=== PATIENT | male | born 1990 | race Hispanic/Latino ===

== ENCOUNTER 2018-06-18 13:46 | Emergency (ER) | payer SELFPAY ==
[2018-06-18 14:30] LABS: Urine Blood NEGATIVE (NEG); Urine Glucose NEGATIVE (NEG); Urine Protein 1+ (NEG); Urine Specific Gravity 1.015 (1.005-1.030); Urine pH 8.5 (5.0-7.0)
[2018-06-18] MEDS ORDERED: LIDOCAINE VISCOUS 2% SOLN 15 ML UDC ONE (14:38)
[2018-06-18] MEDS ORDERED: MAGNE/ALUM HYDROXD 30 ML UCUP ONE (14:39)
[2018-06-18] MEDS ORDERED: ONDANSETRON 4 MG/2 ML VIAL ONE (14:47)
[2018-06-18] MEDS ORDERED: MORPHINE 4 MG/ML SYR ONE (14:57)
[2018-06-18] MEDS ORDERED: PROMETHAZINE 25 MG/ML VIAL ONE ×2 (15:03→16:08)
[2018-06-18 15:13] LABS: ALT/SGPT 60 U/L (12-78); AST/SGOT 24 U/L (15-37); Albumin 4.6 g/dL (3.4-5.0); Alkaline Phosphatase 94 U/L (45-117); BUN Blood Urea Nitrogen 9 mg/dL (7-18); Bicarbonate 28 mmol/L (21-32); Bilirubin Direct 0.2 mg/dL (0-0.2); Bilirubin Total 0.6 mg/dL (0.2-1.0); Glucose Level 102 mg/dL (74-106); Lipase 84 U/L (73-393); Potassium 3.9 mmol/L (3.5-5.1); Protein, Total 8.8 g/dL (6.4-8.2); Sodium Level 140 mmol/L (136-145)
[2018-06-18 15:29] LABS: Absolute Lymphocytes (CBC) 1.6 K/uL (0.7-4.9); Absolute Monocytes 0.9 K/uL (0.1-1.3); Absolute Neutrophil 12.7 K/uL (1.8-8.0); Basophils % 0.4 % (0-1.3); Eosinophils % 0.1 % (0-4.4); Hematocrit 51.4 % (39.6-49.0); Lymphocytes % 10.2 % (15.3-44.8); MCH 30.9 pg (27.0-35.0); MCV 90.2 fL (80-100); MPV 10.2 fL (7.6-11.3); Monocytes % 5.6 % (3.3-12.3); RBC Red Blood Cell Count 5.69 M/uL (4.33-5.43)
--- NOTE | 2018-06-18 15:56 | RAD REPORT ---
EXAM DESCRIPTION: US - Abdomen Exam Limited - 06/18/2018 3:50 pm CLINICAL HISTORY: Abdominal pain, nausea and vomiting COMPARISON: None. FINDINGS: No gallstones, sludge or other abnormalities within the gallbladder lumen. There is no wal l thickening or pericholecystic fluid. No common duct stone or biliary tree dilatation identified. IMPRESSION: Normal gallbladder and biliary tree ultrasound.
[2018-06-18] MEDS ORDERED: MEPERIDINE HCL 50 MG/ML AMP ONE (16:51)
--- NOTE | 2018-06-18 16:54 | RAD REPORT ---
EXAM DESCRIPTION: CT - Abdomen Pelvis W Contrast - 06/18/2018 4:39 pm CLINICAL HISTORY: Epigastric pain, abdominal pain COMPARISON: None. TECHNIQUE: Biphasic, helical CT imaging of the abdomen and pelvis was performed following 100 ml non -ionic IV contrast. Oral contrast was given. All CT scans are performed using dose optimization technique as appropriate and may include automated exposure control or mA/KV adjustment according to patient size. FINDINGS: No suspicious findings in the lung bases. In the anterior right lobe segment IV there is an 18 millimeter enhancing focus on the arterial phase . This is isodense to the liver on venous phase imaging. This is most likely a hemangioma. Liver is o therwise unremarkable. Spleen and pancreas show no suspicious findings. Gallbladder and biliary tree are also without suspic ious finding. Symmetric renal function is seen with no hydronephrosis or suspicious renal mass. No adrenal abnormal ity. Contracted urinary bladder shows no suspicious finding. Prostate gland and seminal vesicles are normal range. No gastric dilatation or gastric wall thickening. No acute small bowel finding. No appendicitis. An a cute colon process is not suspected. There is a focal distention of the distal sigmoid follow up by a circumferential narrowing of the proximal rectum. Bell do not appear thickened. This is probably a peristalsis artifact. Mass of the rectum is unlikely. There is no stranding in the adjacent fat. No free air, free fluid or inflammatory stranding. No hernia, mass or bulky lymphadenopathy. The uri nary bladder is without significant finding. No adrenal abnormality. No suspicious bony findings. IMPRESSION: Contrast enhanced CT abdomen and pelvis showing no emergent finding. Nonacute findings detailed in the body of the report.
--- NOTE | 2018-06-18 16:59 | ER ---
Nurse's Notes [facility] Name: Tony Colmenares Age: 28 yrs Sex: Male : 1990 Arrival Date: 06/18/2018 Time: 13:49 Bed 15 Private MD: None, None Diagnosis: Gastritis, unspecified;Gastro-esophageal reflux disease Presentation: 06/18 13:59 Presenting complaint: Patient states: my stomach az mast for weeks now, like an hj acid reflux; i start throwing up and my stomach is hurting; denies diarrhea, constipation; reports epigastric pain;. 14:00 Transition of care: patient was not received from another setting of care. Onset of hj symptoms was June 18, 2018. Risk Assessment: Do you want to hurt yourself or someone else? Patient reports no desire to harm self or others. Initial Sepsis Screen: Does the patient meet any 2 criteria? No. Patient's initial sepsis screen is negative. Does the patient have a suspected source of infection? No. Patient's initial sepsis screen is negative. Care prior to arrival: None. 14:00 Method Of Arrival: Ambulatory 14:00 Acuity: YAMILET 3 hj Triage Assessment: 14:01 General: Appears in no apparent distress. uncomfortable, Behavior is calm, cooperative, hj appropriate for age. Pain: Complains of pain in epigastric area. GI: Reports upper abdominal pain, nausea, vomiting. Historical: - Allergies: 14: No Known Allergies; hj - Home Meds: 14: None [Active]; hj - PMHx: 14: None; hj - PSHx: 14:01 None; hj - Immunization history:: Adult Immunizations up to date. - Social history:: Smoking status: Patient uses tobacco products, Patient uses alcohol. - Ebola Screening: : Patient negative for fever greater than or equal to 101.5 degrees Fahrenheit, and additional compatible Ebola Virus Disease symptoms Patient denies exposure to infectious person Patient denies travel to an Ebola-affected area in the 21 days before illness onset. - Family history:: not pertinent. - Hospitalizations: : No recent hospitalization is reported. Screenin:01 Abuse screen: Denies threats or abuse. Denies injuries from another. Nutritional hj screening: No deficits noted. Tuberculosis screening: No symptoms or risk factors identified. Fall Risk None identified. Assessment: 14:02 GI: Bowel sounds present X 4 quads. Abd is soft. hj 14:10 General: Appears in no apparent distress. comfortable, Behavior is calm, cooperative. jb4 Pain: Complains of pain in epigastric area Pain does not radiate. Pain currently is 10 out of 10 on a pain scale. at worst was 10 out of 10 on a pain scale. Quality of pain is described as stabbing, Pain began 1 day ago. Is intermittent. Neuro: Level of Consciousness is awake, alert, obeys commands, Oriented to person, place, time, situation. Cardiovascular: Heart tones S1 S2 present Patient's skin is warm and dry. Respiratory: Airway is patent Respiratory effort is even, unlabored, Respiratory pattern is regular, symmetrical. GI: Bowel sounds present X 4 quads. Abd is soft and non tender X 4 quads. Reports nausea, vomiting, Patient currently denies diarrhea. : No signs and/or symptoms were reported regarding the genitourinary system. EENT: No signs and/or symptoms were reported regarding the EENT system. Derm: No signs and/or symptoms reported regarding the dermatologic system. Musculoskeletal: No signs and/or symptoms reported regarding the musculoskeletal system. 14:24 Reassessment: Pt taken to ultrasound. jb4 14:30 Reassessment: Pt back from ultrasound. Actively vomiting, reporting pain 10/10. jb4 Physician notified. See Mar for orders. 15:00 Reassessment: pt actively vomiting, MD notified, Phenergan ordered . aa5 15:20 Reassessment: Pt reports decrease in pain and nausea after medication administartion. jb4 15:25 Reassessment: pt taken to ultrasound. jb4 16:05 Reassessment: Patient reports pain is better, rated 4/10. actively vomiting, physician justyna notified. See MAR for orders. 16:30 Reassessment: Pt wheeled to CT. jb4 16:45 Reassessment: Pt report a decrease in nausea. pain increased to 6/10. physician justyna notified. See Mar for orders. 17:08 Reassessment: Pt is resting in bed with eyes closed. Respirations even and unlabored. jb4 No signs of distress noted. 18:00 Reassessment: Patient and/or family updated on plan of care and expected duration. Pain jb4 level reassessed. Patient is alert, oriented x 3, equal unlabored respirations, skin warm/dry/pink. Pt is awaiting a ride home. Patient states feeling better. Vital Signs: 14:02 BP 132 / 77; Pulse 78; Resp 18; Temp 97.7(O); Pulse Ox 100% on R/A; Weight 90.72 kg; hj Height 5 ft. 4 in. (162.56 cm); Pain 6/10; 14:55 BP 157 / 94; Pulse 70; Resp 24; Pulse Ox 96% on R/A; Pain 10/10; aa5 16:12 BP 115 / 88; Pulse 66; Resp 16; Pulse Ox 100% on R/A; Pain 4/10; jb4 16:47 BP 135 / 90; Pulse 65; Resp 16; Pulse Ox 100% on R/A; Pain 6/10; jb4 17:08 BP 124 / 73; Pulse 60; Resp 16; Pulse Ox 96% on R/A; jb4 18:00 BP 158 / 90; Pulse 64; Resp 18; Pulse Ox 98% on R/A; jb4 14:02 Body Mass Index 34.33 (90.72 kg, 162.56 cm) ED Course: 13:49 Patient arrived in ED. mr 13:50 None, None is Private Physician. mr 14:01 Triage completed. hj 14:02 Arm band placed on right wrist. hj 14:02 Patient has correct armband on for positive identification. Placed in gown. Bed in low hj position. Call light in reach. 14:04 Quintin Cho, OMAR is Primary Nurse. hj 14:06 Benny Espino MD is Attending Physician. rn 14:23 Yuriy Zambrano, OMAR is Primary Nurse. jb4 14:43 Initial lab(s) drawn, by tn, sent to lab. Urine collected: clean catch specimen, kvng mh5 colored. Inserted saline lock: 20 gauge in left antecubital area, using aseptic technique. Blood collected. 14:44 Basic Metabolic Panel Sent. 5 14:44 CBC with Diff Sent. 5 14:44 Hepatic Function Sent. 5 14:44 Lipase Sent. mh5 15:51 US Abdomen Limited In Process Unspecified. EDMS 16:[address] via wheelchair. 2 16:39 CT Abd/Pelvis - W/Contrast In Process Unspecified. EDMS 18:40 No provider procedures requiring assistance completed. IV discontinued, intact, jb4 bleeding controlled. Administered Medications: 14:45 Drug: Zofran 4 mg Route: IVP; Site: left antecubital; aa5 15:00 Follow up: Response: No adverse reaction aa5 14:50 Drug: morphine 4 mg Route: IVP; Site: left antecubital; aa5 15:00 Follow up: Response: No adverse reaction; Pain is decreased aa5 15:00 Drug: Phenergan 12.5 mg Route: IVP; Site: left antecubital; aa5 15:13 Follow up: Response: Nausea is decreased jb4 15:16 Drug: GI Cocktail without - (Maalox Suspension 30 ml, Lidocaine Liquid 2 % 15 aa5 ml) Route: PO; 15:45 Follow up: Response: No adverse reaction jb4 16:10 Drug: Phenergan 12.5 mg Route: IVP; Site: left antecubital; jb4 16:25 Follow up: Response: No adverse reaction jb4 16:50 Drug: Demerol 50 mg Route: IVP; Site: left antecubital; jb4 17:08 Follow up: Response: No adverse reaction jb4 Outcome: 16:59 Discharge ordered by . rn 18:40 Discharged to home ambulatory. jb4 18:40 Condition: stable 18:40 Discharge instructions given to patient, Instructed on discharge instructions, follow up and referral plans. medication usage, Demonstrated understanding of instructions, follow-up care, medications, Prescriptions given X 1. 18:43 Patient left the ED. jb4 Signatures: Dispatcher [employer] HUMBERTOKY Ita Bee Roman, MD MD rn Calderon, Audri RN OMAR 5 Quintin Cho RN RN hj Bryson, James, RN RN jb4 Martinez, Maria [facility] Maia Sim [facility] Corrections: (The following items were deleted from the chart) 14:01 13:59 Presenting complaint: Patient states: my stomach az mast for weeks now, like hj an acid reflux; i start throwing up and my stomach is hurting; denies diarrhea hj 14:04 14:02 Pulse 78bpm; Resp 18bpm; Pulse Ox 100% RA; Temp 97.7F Oral; 90.72 kg; Height 5 hj ft. 4 in.; BMI: 34.3; Pain 6/10; hj 15:08 14:30 Reassessment: Pt back from ultrasound. Restless, reporting pain 10/10. Actively aa5 vomiting. Physician notified see Mar for orders. aa5 15:09 14:30 Reassessment: Pt back from ultrasound. Restless, reporting pain 10/10. Actively aa5 vomiting. Physician notified see Mar for orders. aa5 17:05 16:50 Reassessment: Pt report a decrease in nausea. pain increased to 6/10. physician justyna notified. See Mar for orders. jb4 18:40 18:00 Reassessment: Patient and/or family updated on plan of care and expected jb4 duration. Pain level reassessed. Patient is alert, oriented x 3, equal unlabored respirations, skin warm/dry/pink. Patient states feeling better. jb4
--- NOTE | 2018-06-18 17:00 | EDPHYS ---
Physician Documentation [facility] Name: Tony Colmenares Age: 28 yrs Sex: Male : 1990 Arrival Date: 06/18/2018 Time: 13:49 Bed 15 Private MD: None, None ED Physician Benny Espino HPI: 06/18 14:18 This 28 yrs old Male presents to ER via Ambulatory with complaints of rn Abdominal Pain, Vomiting. 14:18 The patient presents to the emergency department with nausea, abdominal pain. Onset: rn The symptoms/episode began/occurred today. Possible causes:. The symptoms are aggravated by nothing. The symptoms are alleviated by nothing. Associated signs and symptoms: Pertinent positives: abdominal pain, nausea, vomiting, Pertinent negatives: dysuria, fever, GI bleeding. Severity of symptoms: At their worst the symptoms were moderate in the emergency department the symptoms have improved. The patient has experienced similar episodes in the past. Reports multiple similar episodes in past, told acid related/gastritis/GERD, doesn't take daily medication, hasn't f/u with GI, returns with epigastric abd pain and nausea, with burning sensation in throat, worse in mornings if doesn't eat, improved with food. No current abd pain.. Historical: - Allergies: 14:01 No Known Allergies; hj - Home Meds: 14:01 None [Active]; hj - PMHx: 14:01 None; hj - PSHx: 14:01 None; hj - Immunization history:: Adult Immunizations up to date. - Social history:: Smoking status: Patient uses tobacco products, Patient uses alcohol. - Ebola Screening: : Patient negative for fever greater than or equal to 101.5 degrees Fahrenheit, and additional compatible Ebola Virus Disease symptoms Patient denies exposure to infectious person Patient denies travel to an Ebola-affected area in the 21 days before illness onset. - Family history:: not pertinent. - Hospitalizations: : No recent hospitalization is reported. ROS: 14:18 Constitutional: Negative for fever, chills, and weight loss, Eyes: Negative for injury, rn pain, redness, and discharge, Neck: Negative for injury, pain, and swelling, Cardiovascular: Negative for chest pain, palpitations, and edema, Respiratory: Negative for shortness of breath, cough, wheezing, and pleuritic chest pain, Abdomen/GI: + nausea/vomiting MS/Extremity: Negative for injury and deformity, Skin: Negative for injury, rash, and discoloration, Neuro: Negative for headache, weakness, numbness, tingling, and seizure. Exam: 14:18 Constitutional: This is a well developed, well nourished patient who is awake, alert, rn and in no acute distress. Head/Face: Normocephalic, atraumatic. Eyes: Pupils equal round and reactive to light, extra-ocular motions intact. Lids and lashes normal. Conjunctiva and sclera are non-icteric and not injected. Cornea within normal limits. Periorbital areas with no swelling, redness, or edema. Cardiovascular: Regular rate and rhythm with a normal S1 and S2. No gallops, murmurs, or rubs. Normal PMI, no JVD. No pulse deficits. Respiratory: Lungs have equal breath sounds bilaterally, clear to auscultation and percussion. No rales, rhonchi or wheezes noted. No increased work of breathing, no retractions or nasal flaring. Abdomen/GI: Soft, non-tender, with normal bowel sounds. No distension or tympany. No guarding or rebound. No evidence of tenderness throughout. MS/ Extremity: Pulses equal, no cyanosis. Neurovascular intact. Full, normal range of motion. Equal circumference. Neuro: Awake and alert, GCS 15, oriented to person, place, time, and situation. Cranial nerves II-XII grossly intact. Motor strength 5/5 in all extremities. Sensory grossly intact. Cerebellar exam normal. Normal gait. Vital Signs: 14:02 BP 132 / 77; Pulse 78; Resp 18; Temp 97.7(O); Pulse Ox 100% on R/A; Weight 90.72 kg; Height 5 ft. 4 in. (162.56 cm); Pain 6/10; 14:55 BP 157 / 94; Pulse 70; Resp 24; Pulse Ox 96% on R/A; Pain 10/10; aa5 16:12 BP 115 / 88; Pulse 66; Resp 16; Pulse Ox 100% on R/A; Pain 4/10; jb4 16:47 BP 135 / 90; Pulse 65; Resp 16; Pulse Ox 100% on R/A; Pain 6/10; jb4 17:08 BP 124 / 73; Pulse 60; Resp 16; Pulse Ox 96% on R/A; jb4 18:00 BP 158 / 90; Pulse 64; Resp 18; Pulse Ox 98% on R/A; jb4 14:02 Body Mass Index 34.33 (90.72 kg, 162.56 cm) hj MDM: 14:06 Patient medically screened. rn 16:58 Differential diagnosis: Nonspecific abd pain, gastritis, cholecystitis, pancreatitis, rn gastroenteritis. Data reviewed: vital signs, nurses notes, lab test result(s), radiologic studies, CT scan, ultrasound, and as a result, I will discharge patient. Counseling: I had a detailed discussion with the patient and/or guardian regarding: the historical points, exam findings, and any diagnostic results supporting the discharge/admit diagnosis, lab results, radiology results, the need for outpatient follow up, to return to the emergency department if symptoms worsen or persist or if there are any questions or concerns that arise at home. Response to treatment: the patient's symptoms have markedly improved after treatment, and as a result, I will discharge patient. Special discussion: I discussed with the patient/guardian in detail that at this point there is no indication for admission to the hospital. It is understood, however, that if the symptoms persist or worsen the patient needs to return immediately for re-evaluation. Based on the history and exam findings, there is no indication for further emergent testing or inpatient evaluation. I discussed with the patient/guardian the need to see the senior formulation scientist for further evaluation of the symptoms. 16:58 ED course: Recommended daily OTC antacid medication and GI f/u.. rn 06/18 14:18 Order name: Basic Metabolic Panel; Complete Time: 16: rn 06/18 14:18 Order name: CBC with Diff; Complete Time: 16: rn 06/18 14:18 Order name: Hepatic Function; Complete Time: 16: rn 06/18 14:18 Order name: Lipase; Complete Time: 16: rn 06/18 14:18 Order name: US Abdomen Limited; Complete Time: 16: rn 06/18 14:25 Order name: Urine Dipstick--Ancillary (enter results); Complete Time: 14:42 bd 06/18 14:18 Order name: IV Saline Lock; Complete Time: 14:44 rn 06/18 16:09 Order name: CT Abd/Pelvis - W/Contrast; Complete Time: 16:55 rn 06/18 14:18 Order name: Labs collected and sent; Complete Time: 14:44 rn Administered Medications: 14:45 Drug: Zofran 4 mg Route: IVP; Site: left antecubital; aa5 15:00 Follow up: Response: No adverse reaction aa5 14:50 Drug: morphine 4 mg Route: IVP; Site: left antecubital; aa5 15:00 Follow up: Response: No adverse reaction; Pain is decreased aa5 15:00 Drug: Phenergan 12.5 mg Route: IVP; Site: left antecubital; aa5 15:13 Follow up: Response: Nausea is decreased jb4 15:16 Drug: GI Cocktail without - (Maalox Suspension 30 ml, Lidocaine Liquid 2 % 15 aa5 ml) Route: PO; 15:45 Follow up: Response: No adverse reaction jb4 16:10 Drug: Phenergan 12.5 mg Route: IVP; Site: left antecubital; jb4 16:25 Follow up: Response: No adverse reaction jb4 16:50 Drug: Demerol 50 mg Route: IVP; Site: left antecubital; jb4 17:08 Follow up: Response: No adverse reaction jb4 Disposition: 06/18/18 16:59 Discharged to Home. Impression: Gastritis, unspecified, Gastro-esophageal reflux disease. - Condition is Stable. - Discharge Instructions: Gastritis, Adult, Gastroesophageal Reflux Disease, Adult. - Prescriptions for Zofran ODT 4 mg Oral tablet,disintegrating - place 1 tablet by TRANSLINGUAL route every 8-10 hours As needed; 20 tablet. - Medication Reconciliation Form, Thank You Letter, Antibiotic Education, Prescription Opioid Use form. - Follow up: Private Physician; When: As needed; Reason: Recheck today's complaints, Re-evaluation by your physician. - Problem is an acute exacerbation. - Symptoms have improved. Signatures: Dispatcher [employer] EDMS Benny Espino MD MD rn Calderon, Audri, RN RN aa5 Quintin Cho RN Yuriy Medina RN RN jb4 Corrections: (The following items were deleted from the chart) 18:43 16:59 06/18/2018 16:59 Discharged to Home. Impression: Gastritis, unspecified; jb4 Gastro-esophageal reflux disease. Condition is Stable. Forms are Medication Reconciliation Form, Thank You Letter, Antibiotic Education, Prescription Opioid Use. Follow up: Private Physician; When: As needed; Reason: Recheck today's complaints, Re-evaluation by your physician. Problem is an acute exacerbation. Symptoms have improved. rn
== END 2018-06-18 18:43 | disposition home or self-care (01) ==
LOC: ER 13:46
DX: K29.70 Gastritis, unspecified, without bleeding (principal); K21.9 Gastro-esophageal reflux disease without esophagitis; Z72.0 Tobacco use
CPT/HCPCS: 36415; 74177; 76705; 80048; 80076; 81003; 83690; 85025; 96374; 96375; 99284; J2175; J2405; J2550; Q9967